=== PATIENT | female | born 1950 | race Hispanic/Latino ===

== ENCOUNTER → 2017-08-26 | Outpatient (CLI) | payer OTHER, MEDICARE | END | disposition home or self-care (01) | LOC: SHCH 10:13 | PROVIDERS: ATTEND Internal Medicine Cardiovascular Disease | DX: I73.9 Peripheral vascular disease, unspecified (principal); I87.2 Venous insufficiency (chronic) (peripheral) | CPT/HCPCS: 93925; 93970 ==

== ENCOUNTER → 2019-05-09 | Outpatient (CLI) | payer OTHER, MEDICARE ==
--- NOTE | 2019-05-05 11:53 | NUR ---
PROCEDURE WAS R/S FOR ANOTHER DOS R/T PT DRANK COFFEE THIS AM
[~2019-05-09] VITALS: Ht 162.6 cm; Wt 86.2 kg
[~2019-05-09] MED LIST: REGADENOSON 0.4 MG/5 ML PF SYG IVP SCH
== END | disposition home or self-care (01) ==
LOC: SHCH 05-05 07:58
PROVIDERS: ATTEND Internal Medicine Cardiovascular Disease
DX: R06.09 Other forms of dyspnea (principal); R07.9 Chest pain, unspecified
CPT/HCPCS: 78452; 93017; 96374; A9500 ×2; J2785

== ENCOUNTER → 2021-10-01 | Outpatient (CLI) | payer OTHER, MEDICARE | END | disposition home or self-care (01) | LOC: SHCH 09:31 | PROVIDERS: ATTEND Internal Medicine Cardiovascular Disease | DX: I87.2 Venous insufficiency (chronic) (peripheral) (principal) | CPT/HCPCS: 93970 ==

== ENCOUNTER 2022-04-05 12:04 | Emergency (ER) | payer OTHER, MEDICARE ==
[~2022-04-05] VITALS: Ht 170.2 cm; Wt 83.9 kg
[2022-04-05 12:48] LABS: APPEARANCE,URINE TURBID (CLEAR); BILIRUBIN,URINE NEGATIVE (NEGATIVE); COLOR,URINE YELLOW (YELLOW); GLUCOSE, URINE (UA) >=1000 mg/dL (NEGATIVE); KETONES,URINE NEGATIVE (NEGATIVE); LEUKOCYTE ESTERASE ,URINE MODERATE Leu/uL (NEGATIVE); NITRATE,URINE NEGATIVE (NEGATIVE); OCCULT BLOOD,URINE LARGE (NEGATIVE); PROTEIN,URINE 100 mg/dL (NEGATIVE); UROBILINOGEN,URINE 0.2 mg/dL (0.2-1.0)
[2022-04-05 13:36] LABS: BACTERIA,URINE Few /HPF (None Seen); WBC,URINE >100 /HPF (0-1)
[2022-04-05 13:37] LABS: SQUAMOUS EPITHELIAL CELL,UR Rare /HPF (0-2); YEAST,URINE BUDDING Moderate /HPF (None Seen)
[2022-04-05 13:57] VITALS: BP 132/76
== END 2022-04-05 13:58 | disposition home or self-care (01) ==
LOC: EDH 12:04
DX: N39.0 Urinary tract infection, site not specified (principal); I10 Essential (primary) hypertension; E78.00 Pure hypercholesterolemia, unspecified; E11.9 Type 2 diabetes mellitus without complications; Z87.440 Personal history of urinary (tract) infections
CPT/HCPCS: 81001; 87088

== ENCOUNTER 2022-04-14 10:27 | Emergency (ER) | payer OTHER, MEDICARE ==
[~2022-04-14] VITALS: Ht 139.7 cm; Wt 83.9 kg
[2022-04-14 10:38] VITALS: BP 140/110
[2022-04-14 11:05] LABS: BASOPHILS % (AUTO) 0.9 % (0.0-5.0); EOSINOPHILS % (AUTO) 1.9 % (0.0-8.0); HEMATOCRIT 43.5 % (36-48); LYMPHOCYTES % (AUTO) 23.4 % (21.0-51.0); MEAN CORPUSCULAR HEMOGLOBIN 29.2 pg (27.0-33.0); MEAN CORPUSCULAR HGB CONC 33.3 g/dL (32.0-36.0); MEAN CORPUSCULAR VOLUME 87.5 fL (79-99); MONOCYTES % (AUTO) 10.5 % (3.0-13.0); NEUTROPHILS % (AUTO) 62.9 % (40.0-77.0); PLATELET COUNT (AUTO) 269 K/uL (130-400); RED BLOOD CELL COUNT(AUTO) 4.97 MIL/uL (4.00-5.50); RED CELL DISTRIBUTION WIDTH 13.2 % (11.0-15.5)
[2022-04-14 11:15] LABS: CREATININE 0.8 mg/dL (0.5-1.5); POTASSIUM 3.9 mmol/L (3.5-5.1)
[2022-04-14 11:22] LABS: ALBUMIN 3.5 g/dL (3.5-5.0); TOTAL PROTEIN, SERUM 7.5 g/dL (6.0-8.3)
[2022-04-14 13:13] LABS: APPEARANCE,URINE TURBID (CLEAR); BILIRUBIN,URINE NEGATIVE (NEGATIVE); COLOR,URINE ORANGE (YELLOW); GLUCOSE, URINE (UA) >=1000 mg/dL (NEGATIVE); KETONES,URINE 5 mg/dL (NEGATIVE); LEUKOCYTE ESTERASE ,URINE MODERATE Leu/uL (NEGATIVE); NITRATE,URINE POSITIVE (NEGATIVE); OCCULT BLOOD,URINE LARGE (NEGATIVE); PROTEIN,URINE >=300 mg/dL (NEGATIVE)
[2022-04-14 13:23] LABS: BACTERIA,URINE Few /HPF (None Seen); RBC,URINE 0-1 /HPF (0-1); SQUAMOUS EPITHELIAL CELL,UR Rare /HPF (0-2); WBC,URINE TNTC /HPF (0-1); YEAST,URINE BUDDING Many /HPF (None Seen)
[2022-04-14] MEDS ORDERED: ACETAMINOPHEN 500 MG TABLET PO ONE (13:30)
[2022-04-14] MEDS ORDERED: CEFTRIAXONE 1G VIAL IM ONE (13:30)
[2022-04-14] MEDS ORDERED: CEFP100T9 PO (13:33)
== END 2022-04-14 13:48 | disposition home or self-care (01) ==
LOC: EDH 10:27
DX: N39.0 Urinary tract infection, site not specified (principal); E11.9 Type 2 diabetes mellitus without complications; E78.00 Pure hypercholesterolemia, unspecified; I10 Essential (primary) hypertension
CPT/HCPCS: 99283; 80053; 85025; 87088; 81001; 36415; 96372; J0696

== ENCOUNTER 2022-05-28 22:16 | Inpatient (IN) | payer OTHER, MEDICARE ==
[~2022-05-28] VITALS: Ht 170.2 cm; Wt 79.4 kg
[~2022-05-28 22:16] MED LIST changes: +CEFP100T9 PO; -REGADENOSON 0.4 MG/5 ML PF SYG IVP SCH
[2022-05-28] MEDS ORDERED: MORPHINE 2 MG SYG IVP ONE (23:00)
[2022-05-28] MEDS ORDERED: ONDANSETRON 4MG INJ IVP ONE (23:00)
[2022-05-28] MEDS ORDERED: MORPHINE 2 MG SYG ONE (23:04)
[2022-05-28] MEDS ORDERED: ONDANSETRON 4MG INJ ONE (23:04)
[2022-05-28 23:17] LABS: BASOPHILS % (AUTO) 0.7 % (0.0-5.0); EOSINOPHILS % (AUTO) 1.9 % (0.0-8.0); HEMATOCRIT 31.9 % (36-48); LYMPHOCYTES % (AUTO) 16.9 % (21.0-51.0); MEAN CORPUSCULAR HGB CONC 32.6 g/dL (32.0-36.0); MEAN CORPUSCULAR VOLUME 85.8 fL (79-99); MONOCYTES % (AUTO) 9.2 % (3.0-13.0); NEUTROPHILS % (AUTO) 70.2 % (40.0-77.0); PLATELET COUNT (AUTO) 407 K/uL (130-400); RED BLOOD CELL COUNT(AUTO) 3.72 MIL/uL (4.00-5.50)
[2022-05-28 23:27] LABS: PROTHROMBIN TIME 10.9 SEC (9.6-11.6)
[2022-05-28 23:33] LABS: ALBUMIN 2.5 g/dL (3.5-5.0); CREATININE 1.3 mg/dL (0.5-1.5); POTASSIUM 4.5 mmol/L (3.5-5.1); TOTAL PROTEIN, SERUM 7.2 g/dL (6.0-8.3)
[2022-05-29] VITALS (50 sets, daily range): BP systolic 87–128; BP diastolic 36–83
[2022-05-29] MEDS ORDERED: TRANEXAMIC ACID 1000MG/10ML IV ONE
[2022-05-29] MEDS ORDERED: TRANEXAMIC ACID 1000MG/10ML ONE (00:04)
[2022-05-29 00:09] LABS: HEMATOCRIT 32.2 % (36-48)
[2022-05-29] MEDS ORDERED: LACTATED RINGERS 1000ML IV SCH (02:00)
[2022-05-29] MEDS ORDERED: ALBUTEROL 0.083% 2.5 MG/3 ML INH IH PRN (02:30)
[2022-05-29] MEDS ORDERED: LACTATED RINGERS 1000ML 1,000 ML IV SCH ×2 (02:30)
[2022-05-29 02:33] LABS: HEMATOCRIT 25.9 % (36-48)
[2022-05-29] MEDS ORDERED: NOREPINEPHRIN 4MG/NS 250ML 250 ML IV ONE (05:17)
[2022-05-29] MEDS: NOREPINEPHRIN 4MG/NS 250ML 250 ML IV PRN ×2 (05:57→22:14)
[2022-05-29 06:46] LABS: APPEARANCE,URINE TURBID (CLEAR); BILIRUBIN,URINE NEGATIVE (NEGATIVE); COLOR,URINE RED (YELLOW); GLUCOSE, URINE (UA) >=1000 mg/dL (NEGATIVE); KETONES,URINE NEGATIVE (NEGATIVE); LEUKOCYTE ESTERASE ,URINE 250 Leu/uL (NEGATIVE); NITRATE,URINE NEGATIVE (NEGATIVE); OCCULT BLOOD,URINE LARGE (NEGATIVE); PH,URINE 6.5 (5.0-8.0); PROTEIN,URINE 300 mg/dL (NEGATIVE); UROBILINOGEN,URINE 0.2 mg/dL (0.2-1.0)
[2022-05-29 06:49] LABS: BACTERIA,URINE RARE /HPF (None Seen); RBC,URINE TNTC /HPF (0-1); WBC,URINE TNTC /HPF (0-1)
[2022-05-29] MEDS ORDERED: ACETAMINOPHEN WITH CODEINE 1 TAB TAB ONE (07:54)
[2022-05-29] MEDS: ACETAMINOPHEN WITH CODEINE 1 TAB TAB PO PRN (07:57)
[2022-05-29 09:17] LABS: HEMATOCRIT 29.1 % (36-48)
[2022-05-29] MEDS ORDERED: ASPI-1197 PO (09:52)
[2022-05-29] MEDS ORDERED: SIMV-46 PO (09:52)
[2022-05-29] MEDS ORDERED: CHOL100020 PO (09:52)
[2022-05-29] MEDS ORDERED: LOSA50TA64 PO (09:52)
[2022-05-29] MEDS ORDERED: GLIM4TAB36 PO (09:52)
[2022-05-29] MEDS ORDERED: EMPA1TAB21 PO (09:52)
[2022-05-29] MEDS ORDERED: GLIM2TAB30 PO (09:52)
[2022-05-29] MEDS ORDERED: ATEN50TA PO (09:52)
[2022-05-29 13:00] LABS: HEMATOCRIT 35.5 % (36-48); MEAN CORPUSCULAR HEMOGLOBIN 28.4 pg (27.0-33.0); MEAN CORPUSCULAR HGB CONC 31.8 g/dL (32.0-36.0); MEAN CORPUSCULAR VOLUME 89.2 fL (79-99); RED BLOOD CELL COUNT(AUTO) 3.98 MIL/uL (4.00-5.50); RED CELL DISTRIBUTION WIDTH 14.4 % (11.0-15.5); WHITE BLOOD COUNT (AUTO) 19.7 K/uL (4.8-10.8)
[2022-05-29] MEDS ORDERED: CEFTRIAXONE 2GM VIAL IVP SCH (13:30)
[2022-05-29 13:57] LABS: CREATININE 1.3 mg/dL (0.5-1.5)
[2022-05-29] MEDS: PANTOPRAZOLE 40 MG/VIAL IVP SCH (14:47)
[2022-05-29] MEDS: DOXYCYCLINE 100MG+NS 250ML IV SCH (14:48)
[2022-05-29] MEDS ORDERED: 0.9% NACL 500ML IV.SOLN 500 ML IV SCH (15:00)
[2022-05-29] MEDS ORDERED: METRONIDAZOLE 500MG/100ML BAG 100 ML IVPB SCH (16:00)
[2022-05-29] MEDS ORDERED: 0.9%NACL 50ML IV SCH (19:00)
[2022-05-29] MEDS ORDERED: IOHEXOL 350 MG/ML 100ML INFUS..BTL IV ONE (20:06)
[2022-05-29] MEDS: ACETAMINOPHEN 325 MG TAB PO PRN (22:09)
[2022-05-29] MEDS: ZOSYN 3.375GM +NS 50ML IVPB SCH (22:10)
[2022-05-29] MEDS: 0.9%NACL 1000ML 1,000 ML IV SCH (22:16)
[2022-05-30] VITALS (97 sets, daily range): BP systolic 80–160; BP diastolic 34–95
[2022-05-30] MEDS: DOXYCYCLINE 100MG+NS 250ML IV SCH ×3 (02:14→20:25)
[2022-05-30] MEDS: 0.9%NACL 1000ML 1,000 ML IV SCH ×4 (02:16→23:00)
[2022-05-30] MEDS: ZOSYN 3.375GM +NS 50ML IVPB SCH ×2 (04:11→13:45)
[2022-05-30 04:19] LABS: BASOPHILS % (AUTO) 0.3 % (0.0-5.0); EOSINOPHILS % (AUTO) 0.2 % (0.0-8.0); HEMATOCRIT 34.8 % (36-48); LYMPHOCYTES % (AUTO) 4.7 % (21.0-51.0); MEAN CORPUSCULAR HEMOGLOBIN 28.5 pg (27.0-33.0); MEAN CORPUSCULAR HGB CONC 30.2 g/dL (32.0-36.0); MEAN CORPUSCULAR VOLUME 94.6 fL (79-99); MONOCYTES % (AUTO) 6.7 % (3.0-13.0); NEUTROPHILS % (AUTO) 87.2 % (40.0-77.0); PLATELET COUNT (AUTO) 377 K/uL (130-400); RED BLOOD CELL COUNT(AUTO) 3.68 MIL/uL (4.00-5.50); RED CELL DISTRIBUTION WIDTH 14.6 % (11.0-15.5)
[2022-05-30 04:47] LABS: ALBUMIN 1.8 g/dL (3.5-5.0); CREATININE 1.2 mg/dL (0.5-1.5); MAGNESIUM 1.7 mg/dL (1.80-2.40); PHOSPHORUS 4.8 mg/dL (2.5-4.9); POTASSIUM 4.2 mmol/L (3.5-5.1); TOTAL PROTEIN, SERUM 5.9 g/dL (6.0-8.3)
[2022-05-30 05:22] LABS: BAND NEUTROPHILS % (MANUAL) 11 % (0-2); LYMPHOCYTES % (MANUAL) 5 % (22-44); MAN.DIFF COMMENT-IMPRESSION MANUAL DIFFERENTIAL; MONOCYTES % (MANUAL) 5 % (2-9); PLATELET MORPHOLOGY COMMENT ADEQUATE; SEGMENTED NEUTROPHILS % 79 % (40-70)
[2022-05-30] MEDS: NOREPINEPHRIN 4MG/NS 250ML 250 ML IV PRN (06:28)
[2022-05-30 08:29] LABS: CRP QUANTITATIVE 216.9 mg/L (0.00-9.0)
[2022-05-30] MEDS: ERGOCALCIFEROL (VITAMIN D2) 50,000 UNIT CAPSULE PO SCH (09:04)
[2022-05-30] MEDS: ACETAMINOPHEN WITH CODEINE 1 TAB TAB PO PRN ×2 (09:05→19:50)
[2022-05-30] MEDS: PANTOPRAZOLE 40 MG/VIAL IVP SCH (09:05)
[2022-05-30] MEDS ORDERED: DEXTROSE 50%-WATER 50 ML DISP.SYRIN IV PRN (12:30)
[2022-05-30] MEDS ORDERED: GLUCAGON 1MG KIT 1 MG ML IM PRN (12:30)
[2022-05-30] MEDS: MORPHINE 2 MG SYG IVP PRN ×2 (12:47→16:55)
[2022-05-30] MEDS: INSULIN HUMULIN R 100 UNIT/ML 3ML SQ SCH ×2 (17:02→20:25)
[2022-05-30] MEDS ORDERED: MEROPENEM 1 GM VIAL IVP SCH (20:30)
[2022-05-30] MEDS: MEROPENEM 2 GM in 0.9%NACL 100ML 100 ML IVPB SCH (21:17)
[2022-05-31] VITALS (70 sets, daily range): BP systolic 80–164; BP diastolic 42–89
[2022-05-31] MEDS: MORPHINE 2 MG SYG IVP PRN ×2 (01:08→07:53)
[2022-05-31] MEDS: NOREPINEPHRIN 4MG/NS 250ML 250 ML IV PRN (02:51)
[2022-05-31 03:14] LABS: BASOPHILS % (AUTO) 0.2 % (0.0-5.0); EOSINOPHILS % (AUTO) 0.3 % (0.0-8.0); HEMATOCRIT 29.4 % (36-48); LYMPHOCYTES % (AUTO) 2.7 % (21.0-51.0); MEAN CORPUSCULAR HEMOGLOBIN 28.7 pg (27.0-33.0); MEAN CORPUSCULAR VOLUME 89.9 fL (79-99); MONOCYTES % (AUTO) 3.3 % (3.0-13.0); NEUTROPHILS % (AUTO) 91.6 % (40.0-77.0); PLATELET COUNT (AUTO) 314 K/uL (130-400); RED BLOOD CELL COUNT(AUTO) 3.27 MIL/uL (4.00-5.50); RED CELL DISTRIBUTION WIDTH 14.6 % (11.0-15.5); WHITE BLOOD COUNT (AUTO) 25.8 K/uL (4.8-10.8)
[2022-05-31 03:29] LABS: ALBUMIN 1.5 g/dL (3.5-5.0); CREATININE 1.5 mg/dL (0.5-1.5); MAGNESIUM 1.3 mg/dL (1.80-2.40); POTASSIUM 3.1 mmol/L (3.5-5.1); TOTAL PROTEIN, SERUM 5.5 g/dL (6.0-8.3)
[2022-05-31] MEDS: KCL 20 MEQ ERTAB PO PRN ×2 (05:29→09:29)
[2022-05-31] MEDS ORDERED: LIDOCAINE HCL-MPF 1% 2ML VIAL IV PRN (05:30)
[2022-05-31] MEDS ORDERED: POTASSIUM CHLORIDE 20MEQ/100ML 100 ML IV PRN (05:30)
[2022-05-31] MEDS ORDERED: POTASSIUM CHLORIDE 10% ELIXIR 20 MEQ/15 ML UDCUP PO PRN (05:30)
[2022-05-31] MEDS: 0.9%NACL 1000ML 1,000 ML IV SCH ×3 (07:00→22:58)
[2022-05-31] MEDS: INSULIN HUMULIN R 100 UNIT/ML 3ML SQ SCH ×4 (07:30→20:25)
[2022-05-31] MEDS: PANTOPRAZOLE 40 MG/VIAL IVP SCH (07:53)
[2022-05-31] MEDS: MEROPENEM 2 GM in 0.9%NACL 100ML 100 ML IVPB SCH (07:53)
[2022-05-31] MEDS: DOXYCYCLINE 100MG+NS 250ML IV SCH ×2 (07:53→20:25)
[2022-05-31] MEDS: MIDODRINE HCL 5 MG TABLET PO SCH ×3 (09:28→20:25)
[2022-05-31] MEDS ORDERED: PHENTOLAMINE MESYLATE 5 MG VIAL ICAV SCH (11:00)
[2022-05-31] MEDS ORDERED: MEROPENEM 1 GM VIAL IVPB SCH (12:30)
[2022-05-31 13:10] LABS: MAGNESIUM 1.7 mg/dL (1.80-2.40); POTASSIUM 3.9 mmol/L (3.5-5.1)
[2022-05-31] MEDS: MAGNESIUM 2GM PREMIX 50ML 50 ML IV SCH (13:54)
[2022-05-31] MEDS: MEROPENEM 1 GM VIAL IVPB SCH (20:24)
[2022-06-01 00:27] VITALS: BP 119/66
[2022-06-01] MEDS: ACETAMINOPHEN WITH CODEINE 1 TAB TAB PO PRN (01:52)
[2022-06-01 04:22] LABS: BASOPHILS % (AUTO) 0.5 % (0.0-5.0); EOSINOPHILS % (AUTO) 3.6 % (0.0-8.0); HEMATOCRIT 27.8 % (36-48); LYMPHOCYTES % (AUTO) 6.4 % (21.0-51.0); MEAN CORPUSCULAR HEMOGLOBIN 28.7 pg (27.0-33.0); MEAN CORPUSCULAR HGB CONC 33.1 g/dL (32.0-36.0); MEAN CORPUSCULAR VOLUME 86.6 fL (79-99); MONOCYTES % (AUTO) 6.5 % (3.0-13.0); NEUTROPHILS % (AUTO) 82.2 % (40.0-77.0); PLATELET COUNT (AUTO) 287 K/uL (130-400); RED BLOOD CELL COUNT(AUTO) 3.21 MIL/uL (4.00-5.50); RED CELL DISTRIBUTION WIDTH 14.6 % (11.0-15.5); WHITE BLOOD COUNT (AUTO) 14.1 K/uL (4.8-10.8)
[2022-06-01] MEDS: ACETAMINOPHEN 325 MG TAB PO PRN ×3 (04:29→23:25)
[2022-06-01 04:42] VITALS: BP 110/64
[2022-06-01 04:43] LABS: ALBUMIN 1.4 g/dL (3.5-5.0); CREATININE 1.3 mg/dL (0.5-1.5); MAGNESIUM 2.2 mg/dL (1.80-2.40); PHOSPHORUS 2.3 mg/dL (2.5-4.9); POTASSIUM 3.8 mmol/L (3.5-5.1)
[2022-06-01] MEDS: KCL 20 MEQ ERTAB PO PRN ×2 (04:48→09:06)
[2022-06-01] MEDS: 0.9%NACL 1000ML 1,000 ML IV SCH ×3 (07:00→23:00)
[2022-06-01] MEDS: INSULIN HUMULIN R 100 UNIT/ML 3ML SQ SCH ×4 (07:30→21:00)
[2022-06-01 07:49] VITALS: BP 110/62
[2022-06-01] MEDS: PANTOPRAZOLE 40 MG/VIAL IVP SCH (09:05)
[2022-06-01] MEDS: MIDODRINE HCL 5 MG TABLET PO SCH ×3 (09:06→22:01)
[2022-06-01] MEDS: DOXYCYCLINE 100MG+NS 250ML IV SCH ×2 (09:06→22:00)
[2022-06-01] MEDS: MEROPENEM 1 GM VIAL IVPB SCH ×2 (09:06→22:03)
[2022-06-01 12:05] VITALS: BP 120/61
[2022-06-01] MEDS: MORPHINE 2 MG SYG IVP PRN (15:04)
[2022-06-01 16:30] VITALS: BP 114/51
[2022-06-01] MEDS ORDERED: FUROSEMIDE 20MG VIAL IV ONE (18:30)
[2022-06-01] MEDS: IPRATROPIUM/ALBUTEROL SULFATE 3 ML SOLUTION IH PRN ×2 (18:48→23:42)
[2022-06-01 19:21] VITALS: BP 106/64
[2022-06-01] MEDS ORDERED: IBUPROFEN 600 MG TABLET PO PRN (23:30)
[2022-06-02 00:21] VITALS: BP 92/51
[2022-06-02 03:21] VITALS: BP 105/59
[2022-06-02 04:03] LABS: BASOPHILS % (AUTO) 0.3 % (0.0-5.0); EOSINOPHILS % (AUTO) 0.9 % (0.0-8.0); HEMATOCRIT 27.5 % (36-48); LYMPHOCYTES % (AUTO) 5.5 % (21.0-51.0); MEAN CORPUSCULAR HEMOGLOBIN 28.9 pg (27.0-33.0); MEAN CORPUSCULAR HGB CONC 33.5 g/dL (32.0-36.0); MEAN CORPUSCULAR VOLUME 86.5 fL (79-99); MONOCYTES % (AUTO) 7.8 % (3.0-13.0); NEUTROPHILS % (AUTO) 84.5 % (40.0-77.0); PLATELET COUNT (AUTO) 296 K/uL (130-400); RED BLOOD CELL COUNT(AUTO) 3.18 MIL/uL (4.00-5.50); RED CELL DISTRIBUTION WIDTH 14.6 % (11.0-15.5); WHITE BLOOD COUNT (AUTO) 15.7 K/uL (4.8-10.8)
[2022-06-02 04:05] LABS: ALBUMIN 1.3 g/dL (3.5-5.0); CREATININE 1.6 mg/dL (0.5-1.5); MAGNESIUM 1.8 mg/dL (1.80-2.40); PHOSPHORUS 3.4 mg/dL (2.5-4.9); POTASSIUM 3.9 mmol/L (3.5-5.1); TOTAL PROTEIN, SERUM 4.8 g/dL (6.0-8.3)
[2022-06-02] MEDS: IPRATROPIUM/ALBUTEROL SULFATE 3 ML SOLUTION IH PRN ×3 (06:25→19:23)
[2022-06-02] MEDS: INSULIN HUMULIN R 100 UNIT/ML 3ML SQ SCH ×4 (07:30→21:00)
[2022-06-02 08:00] VITALS: BP 99/61
[2022-06-02] MEDS: PANTOPRAZOLE 40 MG/VIAL IVP SCH (09:15)
[2022-06-02] MEDS: DOXYCYCLINE 100MG+NS 250ML IV SCH ×2 (09:15→21:11)
[2022-06-02] MEDS: MIDODRINE HCL 5 MG TABLET PO SCH ×3 (09:15→21:12)
[2022-06-02] MEDS: MEROPENEM 1 GM VIAL IVPB SCH ×2 (09:15→21:12)
[2022-06-02] MEDS: MAGNESIUM 2GM PREMIX 50ML 50 ML IV SCH (09:16)
[2022-06-02 10:46] VITALS: BP 100/53
[2022-06-02 15:49] VITALS: BP 121/67
[2022-06-02] MEDS: 0.9%NACL 1000ML 1,000 ML IV SCH (17:26)
[2022-06-02 20:00] VITALS: BP 122/68
[2022-06-03] VITALS (26 sets, daily range): BP systolic 103–143; BP diastolic 47–79
[2022-06-03 04:20] LABS: BASOPHILS % (AUTO) 0.2 % (0.0-5.0); EOSINOPHILS % (AUTO) 1.9 % (0.0-8.0); HEMATOCRIT 29.9 % (36-48); LYMPHOCYTES % (AUTO) 5.7 % (21.0-51.0); MEAN CORPUSCULAR HEMOGLOBIN 28.3 pg (27.0-33.0); MEAN CORPUSCULAR HGB CONC 32.8 g/dL (32.0-36.0); MEAN CORPUSCULAR VOLUME 86.4 fL (79-99); MONOCYTES % (AUTO) 7.8 % (3.0-13.0); NEUTROPHILS % (AUTO) 83.5 % (40.0-77.0); PLATELET COUNT (AUTO) 288 K/uL (130-400); RED BLOOD CELL COUNT(AUTO) 3.46 MIL/uL (4.00-5.50); RED CELL DISTRIBUTION WIDTH 14.5 % (11.0-15.5); WHITE BLOOD COUNT (AUTO) 12.7 K/uL (4.8-10.8)
[2022-06-03 04:26] LABS: CREATININE 1.1 mg/dL (0.5-1.5); POTASSIUM 3.8 mmol/L (3.5-5.1)
[2022-06-03] MEDS: KCL 20 MEQ ERTAB PO PRN (05:43)
[2022-06-03] MEDS: ACETAMINOPHEN WITH CODEINE 1 TAB TAB PO PRN (05:43)
[2022-06-03] MEDS: INSULIN HUMULIN R 100 UNIT/ML 3ML SQ SCH ×4 (05:48→21:33)
[2022-06-03] MEDS: IPRATROPIUM/ALBUTEROL SULFATE 3 ML SOLUTION IH PRN ×2 (07:05→16:02)
[2022-06-03] MEDS: DOXYCYCLINE 100MG+NS 250ML IV SCH ×2 (09:33→21:00)
[2022-06-03] MEDS: MIDODRINE HCL 5 MG TABLET PO SCH ×3 (09:33→21:24)
[2022-06-03] MEDS: MEROPENEM 1 GM VIAL IVPB SCH ×2 (09:33→21:23)
[2022-06-03] MEDS: PANTOPRAZOLE 40 MG/VIAL IVP SCH (09:33)
[2022-06-03] MEDS ORDERED: LIDOCAINE PF 100MG/5ML (2%) SYRINGE 5ML ONE (11:01)
[2022-06-03] MEDS ORDERED: SUCCINYLCHOLINE 200MG/10ML SYR ONE (11:01)
[2022-06-03] MEDS ORDERED: DEXAMETHASONE SOD PHOSPHATE 10MG/ML 1ML VIAL ONE (11:01)
[2022-06-03] MEDS ORDERED: GLYCOPYRROLATE 1 MG/5 ML SYRINGE ONE (11:02)
[2022-06-03] MEDS ORDERED: ROCURONIUM 10MG/1ML SYR 10 MG/ML ML ONE (11:02)
[2022-06-03] MEDS ORDERED: NEOSTIGMINE 5MG/5ML SYR IV ONE (11:02)
[2022-06-03] MEDS ORDERED: PROPOFOL 10 MG/ML 20ML VIAL IV ONE (11:02)
[2022-06-03] MEDS ORDERED: MIDAZOLAM HCL 1 MG/ML 2ML VIAL ONE (11:02)
[2022-06-03] MEDS ORDERED: ONDANSETRON 4MG INJ ONE (11:02)
[2022-06-03] MEDS ORDERED: FENTANYL CITRATE PF 50 MCG/1 ML 2ML VIAL ONE (11:03)
[2022-06-03] MEDS ORDERED: EPHEDRINE SULFATE 50 MG/ML AMPULE ONE (12:14)
[2022-06-03] MEDS: 0.9%NACL 1000ML 1,000 ML IV SCH (12:28)
[2022-06-04 03:42] LABS: HEMATOCRIT 30.9 % (36-48); MEAN CORPUSCULAR HEMOGLOBIN 27.9 pg (27.0-33.0); MEAN CORPUSCULAR HGB CONC 31.7 g/dL (32.0-36.0); RED BLOOD CELL COUNT(AUTO) 3.51 MIL/uL (4.00-5.50); RED CELL DISTRIBUTION WIDTH 14.7 % (11.0-15.5); WHITE BLOOD COUNT (AUTO) 14.2 K/uL (4.8-10.8)
[2022-06-04 04:01] LABS: CREATININE 1.1 mg/dL (0.5-1.5); POTASSIUM 4.2 mmol/L (3.5-5.1)
[2022-06-04 04:59] VITALS: BP 124/61
[2022-06-04] MEDS: INSULIN HUMULIN R 100 UNIT/ML 3ML SQ SCH ×4 (06:20→20:59)
[2022-06-04] MEDS: DOXYCYCLINE 100MG+NS 250ML IV SCH ×2 (08:29→22:01)
[2022-06-04] MEDS: PANTOPRAZOLE 40 MG/VIAL IVP SCH (08:29)
[2022-06-04] MEDS: MIDODRINE HCL 5 MG TABLET PO SCH ×3 (08:29→21:23)
[2022-06-04] MEDS: MEROPENEM 1 GM VIAL IVPB SCH ×2 (08:47→20:52)
[2022-06-04 08:59] VITALS: BP 109/66
[2022-06-04] MEDS: 0.9%NACL 1000ML 1,000 ML IV SCH (09:04)
[2022-06-04 11:49] VITALS: BP 129/75
[2022-06-04 17:11] VITALS: BP 133/80
[2022-06-04 19:06] VITALS: BP 143/77
[2022-06-04 22:44] VITALS: BP 124/59
[2022-06-05 02:34] VITALS: BP 125/57
[2022-06-05] MEDS: 0.9%NACL 1000ML 1,000 ML IV SCH ×2 (05:54→18:17)
[2022-06-05 06:14] LABS: HEMATOCRIT 30.8 % (36-48); MEAN CORPUSCULAR HEMOGLOBIN 28.5 pg (27.0-33.0); MEAN CORPUSCULAR HGB CONC 32.8 g/dL (32.0-36.0); MEAN CORPUSCULAR VOLUME 86.8 fL (79-99); RED BLOOD CELL COUNT(AUTO) 3.55 MIL/uL (4.00-5.50); RED CELL DISTRIBUTION WIDTH 14.6 % (11.0-15.5)
[2022-06-05 06:35] LABS: POTASSIUM 3.9 mmol/L (3.5-5.1)
[2022-06-05] MEDS: INSULIN HUMULIN R 100 UNIT/ML 3ML SQ SCH ×4 (07:30→20:38)
[2022-06-05 07:31] VITALS: BP 140/67
[2022-06-05] MEDS: PANTOPRAZOLE 40 MG/VIAL IVP SCH (08:57)
[2022-06-05] MEDS: DOXYCYCLINE 100MG+NS 250ML IV SCH ×2 (08:57→21:41)
[2022-06-05] MEDS: MIDODRINE HCL 5 MG TABLET PO SCH ×3 (08:58→20:37)
[2022-06-05] MEDS: MEROPENEM 1 GM VIAL IVPB SCH ×2 (09:00→20:37)
[2022-06-05 11:10] VITALS: BP 122/65
[2022-06-05 16:29] VITALS: BP 129/59
[2022-06-05 19:17] VITALS: BP 127/65
[2022-06-05 23:00] VITALS: BP 135/78
[2022-06-06 02:49] VITALS: BP 126/68
[2022-06-06] MEDS: ACETAMINOPHEN WITH CODEINE 1 TAB TAB PO PRN (03:51)
[2022-06-06] MEDS: INSULIN HUMULIN R 100 UNIT/ML 3ML SQ SCH ×4 (06:16→21:00)
[2022-06-06 07:13] VITALS: BP 118/60
[2022-06-06] MEDS: ERGOCALCIFEROL (VITAMIN D2) 50,000 UNIT CAPSULE PO SCH (08:15)
[2022-06-06] MEDS: MIDODRINE HCL 5 MG TABLET PO SCH ×3 (08:16→21:15)
[2022-06-06] MEDS: MEROPENEM 1 GM VIAL IVPB SCH ×2 (08:17→21:11)
[2022-06-06] MEDS: DOXYCYCLINE 100MG+NS 250ML IV SCH ×2 (08:19→22:26)
[2022-06-06] MEDS: PANTOPRAZOLE 40 MG/VIAL IVP SCH (08:21)
[2022-06-06 11:20] VITALS: BP 137/70
[2022-06-06 15:27] VITALS: BP 110/62
[2022-06-06 20:00] VITALS: BP 134/86
[2022-06-06] MEDS: 0.9%NACL 1000ML 1,000 ML IV SCH (21:54)
[2022-06-07] VITALS (7 sets, daily range): BP systolic 115–146; BP diastolic 65–83
[2022-06-07] MEDS: ACETAMINOPHEN WITH CODEINE 1 TAB TAB PO PRN ×3 (02:32→22:37)
[2022-06-07] MEDS: INSULIN HUMULIN R 100 UNIT/ML 3ML SQ SCH ×4 (06:46→20:41)
[2022-06-07] MEDS: DOXYCYCLINE 100MG+NS 250ML IV SCH ×2 (08:43→20:34)
[2022-06-07] MEDS: MEROPENEM 1 GM VIAL IVPB SCH ×2 (08:43→22:27)
[2022-06-07] MEDS: PANTOPRAZOLE 40 MG/VIAL IVP SCH (08:43)
[2022-06-07] MEDS: MIDODRINE HCL 5 MG TABLET PO SCH ×3 (08:44→20:34)
[2022-06-07] MEDS: BISACODYL 10 MG SUPP.RECT RC PRN (18:32)
[2022-06-07] MEDS: 0.9%NACL 1000ML 1,000 ML IV SCH (20:40)
[2022-06-08 03:53] VITALS: BP 136/80
[2022-06-08 05:09] LABS: HEMATOCRIT 34.1 % (36-48); MEAN CORPUSCULAR HEMOGLOBIN 28.1 pg (27.0-33.0); MEAN CORPUSCULAR HGB CONC 31.7 g/dL (32.0-36.0); MEAN CORPUSCULAR VOLUME 88.6 fL (79-99); RED BLOOD CELL COUNT(AUTO) 3.85 MIL/uL (4.00-5.50); RED CELL DISTRIBUTION WIDTH 14.5 % (11.0-15.5); WHITE BLOOD COUNT (AUTO) 14.7 K/uL (4.8-10.8)
[2022-06-08 05:36] LABS: CREATININE 0.8 mg/dL (0.5-1.5); MAGNESIUM 1.4 mg/dL (1.80-2.40); POTASSIUM 3.9 mmol/L (3.5-5.1)
[2022-06-08] MEDS: INSULIN HUMULIN R 100 UNIT/ML 3ML SQ SCH ×4 (06:55→21:00)
[2022-06-08 07:25] VITALS: BP 120/69
[2022-06-08] MEDS: MIDODRINE HCL 5 MG TABLET PO SCH ×3 (09:00→21:00)
[2022-06-08] MEDS: DOXYCYCLINE 100MG+NS 250ML IV SCH ×2 (09:39→22:55)
[2022-06-08] MEDS: PANTOPRAZOLE 40 MG/VIAL IVP SCH (09:39)
[2022-06-08] MEDS: MEROPENEM 1 GM VIAL IVPB SCH ×2 (09:40→22:55)
[2022-06-08 11:10] VITALS: BP 116/67
[2022-06-08] MEDS ORDERED: MAGNESIUM 4GM PREMIX 100ML 100 ML IV PRN (11:30)
[2022-06-08] MEDS: 0.9%NACL 1000ML 1,000 ML IV SCH (13:54)
[2022-06-08 15:19] VITALS: BP 119/62
[2022-06-08] MEDS: MAGNESIUM 2GM PREMIX 50ML 50 ML IV SCH (17:19)
[2022-06-08 20:00] VITALS: BP 130/70
[2022-06-09] VITALS: BP 125/73
[2022-06-09 05:05] LABS: HEMATOCRIT 30.7 % (36-48); MEAN CORPUSCULAR HEMOGLOBIN 28.3 pg (27.0-33.0); MEAN CORPUSCULAR HGB CONC 31.9 g/dL (32.0-36.0); MEAN CORPUSCULAR VOLUME 88.7 fL (79-99); RED BLOOD CELL COUNT(AUTO) 3.46 MIL/uL (4.00-5.50); RED CELL DISTRIBUTION WIDTH 14.5 % (11.0-15.5); WHITE BLOOD COUNT (AUTO) 8.8 K/uL (4.8-10.8)
[2022-06-09 05:06] VITALS: BP 111/59
[2022-06-09 05:14] LABS: INR 1.09 (0.85-1.15); PROTHROMBIN TIME 11.8 SEC (9.6-11.6)
[2022-06-09 05:15] LABS: PARTIAL THROMBOPLASTIN TIME 27.6 SEC (26.3-35.5)
[2022-06-09 05:18] LABS: CREATININE 0.8 mg/dL (0.5-1.5); MAGNESIUM 1.4 mg/dL (1.80-2.40); POTASSIUM 3.1 mmol/L (3.5-5.1)
[2022-06-09] MEDS: INSULIN HUMULIN R 100 UNIT/ML 3ML SQ SCH ×4 (05:35→21:00)
[2022-06-09] MEDS: MAGNESIUM 2GM PREMIX 50ML 50 ML IV SCH (05:42)
[2022-06-09 07:40] VITALS: BP 114/66
[2022-06-09] MEDS: MIDODRINE HCL 5 MG TABLET PO SCH ×4 (09:00→21:19)
[2022-06-09] MEDS: DOXYCYCLINE 100MG+NS 250ML IV SCH ×2 (10:24→21:19)
[2022-06-09] MEDS: PANTOPRAZOLE 40 MG/VIAL IVP SCH (10:24)
[2022-06-09] MEDS: MEROPENEM 1 GM VIAL IVPB SCH ×2 (10:24→21:19)
[2022-06-09] MEDS: 0.9%NACL 1000ML 1,000 ML IV SCH (11:32)
[2022-06-09 11:40] VITALS: BP 119/66
[2022-06-09] MEDS: KCL 20 MEQ ERTAB PO PRN ×3 (15:30→21:20)
[2022-06-09 15:35] VITALS: BP 108/59
[2022-06-09 20:41] VITALS: BP 114/57
[2022-06-10] VITALS (27 sets, daily range): BP systolic 116–147; BP diastolic 50–82
[2022-06-10 04:41] LABS: BASOPHILS % (AUTO) 0.5 % (0.0-5.0); EOSINOPHILS % (AUTO) 4.1 % (0.0-8.0); HEMATOCRIT 31.8 % (36-48); LYMPHOCYTES % (AUTO) 16.1 % (21.0-51.0); MEAN CORPUSCULAR HGB CONC 32.1 g/dL (32.0-36.0); MEAN CORPUSCULAR VOLUME 87.4 fL (79-99); MONOCYTES % (AUTO) 10.7 % (3.0-13.0); NEUTROPHILS % (AUTO) 67.7 % (40.0-77.0); PLATELET COUNT (AUTO) 291 K/uL (130-400); RED BLOOD CELL COUNT(AUTO) 3.64 MIL/uL (4.00-5.50); RED CELL DISTRIBUTION WIDTH 14.5 % (11.0-15.5); WHITE BLOOD COUNT (AUTO) 7.8 K/uL (4.8-10.8)
[2022-06-10 04:51] LABS: INR 1.07 (0.85-1.15); PROTHROMBIN TIME 11.6 SEC (9.6-11.6)
[2022-06-10 04:52] LABS: PARTIAL THROMBOPLASTIN TIME 27.8 SEC (26.3-35.5)
[2022-06-10 05:01] LABS: ALBUMIN 1.6 g/dL (3.5-5.0); CREATININE 0.7 mg/dL (0.5-1.5); MAGNESIUM 1.6 mg/dL (1.80-2.40); POTASSIUM 3.7 mmol/L (3.5-5.1); TOTAL PROTEIN, SERUM 5.6 g/dL (6.0-8.3)
[2022-06-10] MEDS: INSULIN HUMULIN R 100 UNIT/ML 3ML SQ SCH ×4 (05:05→20:42)
[2022-06-10] MEDS: MAGNESIUM 2GM PREMIX 50ML 50 ML IV SCH (05:10)
[2022-06-10] MEDS: PANTOPRAZOLE 40 MG/VIAL IVP SCH (08:15)
[2022-06-10] MEDS: MEROPENEM 1 GM VIAL IVPB SCH ×2 (08:15→20:47)
[2022-06-10] MEDS: DOXYCYCLINE 100MG+NS 250ML IV SCH (08:16)
[2022-06-10] MEDS: MIDODRINE HCL 5 MG TABLET PO SCH ×4 (08:16→20:48)
[2022-06-10] MEDS: FLUCONAZOLE 100 MG TAB PO SCH (08:16)
[2022-06-10] MEDS: LACTOBACILLUS RHAMNOSUS GG 1 EACH CAP.SPRINK PO SCH (09:00)
[2022-06-10] MEDS ORDERED: ONDANSETRON 4MG INJ ONE (13:48)
[2022-06-10] MEDS ORDERED: PROPOFOL 10 MG/ML 20ML VIAL IV ONE (13:48)
[2022-06-10] MEDS ORDERED: ROCURONIUM 10MG/1ML SYR 10 MG/ML ML ONE (13:48)
[2022-06-10] MEDS ORDERED: FENTANYL CITRATE PF 50 MCG/1 ML 2ML VIAL ONE (13:59)
[2022-06-10] MEDS: 0.9%NACL 1000ML 1,000 ML IV SCH (14:04)
[2022-06-10] MEDS ORDERED: AMINOCAPROIC ACID 5,000MG VIAL ONE ×3 (15:08→15:13)
[2022-06-10] MEDS ORDERED: ZOSYN 3.375GM+NS 50ML 50 ML IVPB ONE ×2 (15:18→19:55)
[2022-06-10] MEDS ORDERED: PIP/TAZ ZOSYN 3.375G 3.375 GM VIAL IVPB ONE (15:24)
[2022-06-10] MEDS ORDERED: MEPERIDINE-PF 75 MG/ML SYG IM PRN (17:30)
[2022-06-10] MEDS ORDERED: ONDANSETRON 4MG INJ IVP PRN (17:30)
[2022-06-10] MEDS ORDERED: OXYBUTYNIN 5 MG TAB.SR.24H PO SCH (17:30)
[2022-06-10] MEDS ORDERED: PHARMACY COMMUNICATION MISC SCH ×2 (17:30→20:00)
[2022-06-10] MEDS ORDERED: ACETAMINOPHEN WITH CODEINE 1 TAB TAB PO PRN (17:30)
[2022-06-10] MEDS: [UNRECOGNIZED DRUG - OTHER] IV SCH (19:30)
[2022-06-10] MEDS: AMINOCAPROIC ACID IV SCH (19:30)
[2022-06-10] MEDS: ZOSYN 3.375GM +NS 50ML IVPB SCH (20:47)
[2022-06-10] MEDS: AMINOCAPROIC ACID 500MG TAB PO SCH (20:47)
[2022-06-10] MEDS ORDERED: 0.9%NACL 50ML IV SCH (21:00)
[2022-06-11] MEDS: 0.9%NACL 1000ML 1,000 ML IV SCH ×2 (00:26→20:31)
[2022-06-11 04:22] VITALS: BP 116/61
[2022-06-11] MEDS: ZOSYN 3.375GM +NS 50ML IVPB SCH ×3 (04:26→20:30)
[2022-06-11] MEDS: [UNRECOGNIZED DRUG - OTHER] IV SCH (04:33)
[2022-06-11] MEDS: AMINOCAPROIC ACID IV SCH (04:33)
[2022-06-11 05:51] LABS: BASOPHILS % (AUTO) 0.9 % (0.0-5.0); EOSINOPHILS % (AUTO) 5.5 % (0.0-8.0); HEMATOCRIT 29.9 % (36-48); LYMPHOCYTES % (AUTO) 20.2 % (21.0-51.0); MEAN CORPUSCULAR HEMOGLOBIN 28.4 pg (27.0-33.0); MEAN CORPUSCULAR HGB CONC 32.4 g/dL (32.0-36.0); MEAN CORPUSCULAR VOLUME 87.4 fL (79-99); MONOCYTES % (AUTO) 10.6 % (3.0-13.0); NEUTROPHILS % (AUTO) 61.9 % (40.0-77.0); PLATELET COUNT (AUTO) 279 K/uL (130-400); RED BLOOD CELL COUNT(AUTO) 3.42 MIL/uL (4.00-5.50); RED CELL DISTRIBUTION WIDTH 14.7 % (11.0-15.5); WHITE BLOOD COUNT (AUTO) 6.7 K/uL (4.8-10.8)
[2022-06-11] MEDS: INSULIN HUMULIN R 100 UNIT/ML 3ML SQ SCH ×4 (06:04→20:28)
[2022-06-11 06:13] LABS: CREATININE 0.7 mg/dL (0.5-1.5); POTASSIUM 3.2 mmol/L (3.5-5.1)
[2022-06-11 08:36] VITALS: BP 124/63
[2022-06-11] MEDS: FLUCONAZOLE 100 MG TAB PO SCH (09:00)
[2022-06-11] MEDS: AMINOCAPROIC ACID 500MG TAB PO SCH ×4 (09:00→20:30)
[2022-06-11] MEDS: LACTOBACILLUS RHAMNOSUS GG 1 EACH CAP.SPRINK PO SCH (09:00)
[2022-06-11] MEDS: MIDODRINE HCL 5 MG TABLET PO SCH ×3 (09:00→20:31)
[2022-06-11] MEDS: PANTOPRAZOLE 40 MG/VIAL IVP SCH (10:46)
[2022-06-11] MEDS: MEROPENEM 1 GM VIAL IVPB SCH ×2 (10:46→20:30)
[2022-06-11 11:32] VITALS: BP 95/64
[2022-06-11] MEDS: KCL 20 MEQ ERTAB PO PRN ×3 (14:09→20:31)
[2022-06-11 16:01] VITALS: BP 136/71
[2022-06-11 20:35] VITALS: BP 137/71
[2022-06-12 00:17] VITALS: BP 147/66
[2022-06-12] MEDS: ACETAMINOPHEN 325 MG TAB PO PRN (02:40)
[2022-06-12 03:57] VITALS: BP 146/71
[2022-06-12] MEDS: ZOSYN 3.375GM +NS 50ML IVPB SCH ×3 (04:06→20:10)
[2022-06-12] MEDS: INSULIN HUMULIN R 100 UNIT/ML 3ML SQ SCH ×4 (05:59→21:00)
[2022-06-12 09:21] VITALS: BP 119/66
[2022-06-12] MEDS: MIDODRINE HCL 5 MG TABLET PO SCH ×3 (09:50→20:10)
[2022-06-12] MEDS: AMINOCAPROIC ACID 500MG TAB PO SCH ×4 (09:50→20:10)
[2022-06-12] MEDS: FLUCONAZOLE 100 MG TAB PO SCH (09:51)
[2022-06-12] MEDS: LACTOBACILLUS RHAMNOSUS GG 1 EACH CAP.SPRINK PO SCH (09:51)
[2022-06-12] MEDS: PANTOPRAZOLE 40 MG/VIAL IVP SCH (09:51)
[2022-06-12] MEDS: MEROPENEM 1 GM VIAL IVPB SCH ×2 (09:52→20:09)
[2022-06-12 12:12] VITALS: BP 116/61
[2022-06-12 17:22] VITALS: BP 130/59
[2022-06-12 20:00] VITALS: BP 140/68
[2022-06-12] MEDS: 0.9%NACL 1000ML 1,000 ML IV SCH (20:10)
[2022-06-13] VITALS: BP 146/67
[2022-06-13] MEDS: ZOSYN 3.375GM +NS 50ML IVPB SCH ×3 (03:22→21:15)
[2022-06-13] MEDS: ACETAMINOPHEN WITH CODEINE 1 TAB TAB PO PRN (03:23)
[2022-06-13 04:00] VITALS: BP 143/76
[2022-06-13] MEDS: INSULIN HUMULIN R 100 UNIT/ML 3ML SQ SCH ×4 (05:13→21:00)
[2022-06-13 05:50] LABS: HEMATOCRIT 32.3 % (36-48); MEAN CORPUSCULAR HEMOGLOBIN 28.2 pg (27.0-33.0); RED BLOOD CELL COUNT(AUTO) 3.55 MIL/uL (4.00-5.50); RED CELL DISTRIBUTION WIDTH 14.6 % (11.0-15.5); WHITE BLOOD COUNT (AUTO) 7.8 K/uL (4.8-10.8)
[2022-06-13 06:02] LABS: POTASSIUM 3.1 mmol/L (3.5-5.1)
[2022-06-13] MEDS: KCL 20 MEQ ERTAB PO PRN ×3 (06:15→11:10)
[2022-06-13 08:13] VITALS: BP 121/59
[2022-06-13] MEDS: FLUCONAZOLE 100 MG TAB PO SCH (10:59)
[2022-06-13] MEDS: MIDODRINE HCL 5 MG TABLET PO SCH ×3 (11:00→21:17)
[2022-06-13] MEDS: LACTOBACILLUS RHAMNOSUS GG 1 EACH CAP.SPRINK PO SCH (11:06)
[2022-06-13] MEDS: AMINOCAPROIC ACID 500MG TAB PO SCH ×4 (11:07→21:17)
[2022-06-13] MEDS: MEROPENEM 1 GM VIAL IVPB SCH ×2 (11:07→21:15)
[2022-06-13] MEDS: PANTOPRAZOLE 40 MG/VIAL IVP SCH (11:08)
[2022-06-13] MEDS ORDERED: ERGOCALCIFEROL (VITAMIN D2) 50,000 UNIT CAPSULE PO SCH ×2 (11:30→11:46)
[2022-06-13 12:02] VITALS: BP 110/70
[2022-06-13 17:06] VITALS: BP 110/59
[2022-06-13 20:00] VITALS: BP 114/56
[2022-06-14] VITALS: BP 142/78
[2022-06-14 04:00] VITALS: BP 107/66
[2022-06-14] MEDS: ZOSYN 3.375GM +NS 50ML IVPB SCH ×3 (04:44→20:27)
[2022-06-14 05:40] LABS: HEMATOCRIT 33.1 % (36-48); MEAN CORPUSCULAR HEMOGLOBIN 27.8 pg (27.0-33.0); MEAN CORPUSCULAR HGB CONC 31.1 g/dL (32.0-36.0); MEAN CORPUSCULAR VOLUME 89.5 fL (79-99); RED BLOOD CELL COUNT(AUTO) 3.7 MIL/uL (4.00-5.50); RED CELL DISTRIBUTION WIDTH 14.9 % (11.0-15.5); WHITE BLOOD COUNT (AUTO) 7.9 K/uL (4.8-10.8)
[2022-06-14 05:43] LABS: CREATININE 0.8 mg/dL (0.5-1.5); POTASSIUM 3.2 mmol/L (3.5-5.1)
[2022-06-14] MEDS: INSULIN HUMULIN R 100 UNIT/ML 3ML SQ SCH ×4 (06:26→20:29)
[2022-06-14 08:47] VITALS: BP 115/67
[2022-06-14] MEDS: AMINOCAPROIC ACID 500MG TAB PO SCH ×4 (10:35→20:29)
[2022-06-14] MEDS: LACTOBACILLUS RHAMNOSUS GG 1 EACH CAP.SPRINK PO SCH (10:35)
[2022-06-14] MEDS: FLUCONAZOLE 100 MG TAB PO SCH (10:35)
[2022-06-14] MEDS: MIDODRINE HCL 5 MG TABLET PO SCH ×3 (10:35→20:33)
[2022-06-14] MEDS: MEROPENEM 1 GM VIAL IVPB SCH (10:36)
[2022-06-14] MEDS: PANTOPRAZOLE 40 MG/VIAL IVP SCH (10:36)
[2022-06-14 12:11] VITALS: BP 99/69
[2022-06-14 16:56] VITALS: BP 146/77
[2022-06-14 20:00] VITALS: BP 154/82
[2022-06-14] MEDS: ACETAMINOPHEN 325 MG TAB PO PRN (23:00)
[2022-06-15] VITALS: BP 122/70
[2022-06-15 04:00] VITALS: BP 126/72
[2022-06-15] MEDS: ZOSYN 3.375GM +NS 50ML IVPB SCH ×3 (04:15→20:22)
[2022-06-15 04:16] LABS: HEMATOCRIT 32.6 % (36-48); MEAN CORPUSCULAR HEMOGLOBIN 28.1 pg (27.0-33.0); MEAN CORPUSCULAR HGB CONC 31.9 g/dL (32.0-36.0); MEAN CORPUSCULAR VOLUME 88.1 fL (79-99); RED BLOOD CELL COUNT(AUTO) 3.7 MIL/uL (4.00-5.50)
[2022-06-15 04:27] LABS: CREATININE 0.8 mg/dL (0.5-1.5); POTASSIUM 3.2 mmol/L (3.5-5.1)
[2022-06-15] MEDS: INSULIN HUMULIN R 100 UNIT/ML 3ML SQ SCH ×4 (06:41→21:00)
[2022-06-15 08:00] VITALS: BP 131/73
[2022-06-15] MEDS: MIDODRINE HCL 5 MG TABLET PO SCH ×3 (09:06→20:22)
[2022-06-15] MEDS: PANTOPRAZOLE 40 MG/VIAL IVP SCH (09:06)
[2022-06-15] MEDS: FLUCONAZOLE 100 MG TAB PO SCH (09:06)
[2022-06-15] MEDS: AMINOCAPROIC ACID 500MG TAB PO SCH ×4 (09:06→20:22)
[2022-06-15] MEDS: LACTOBACILLUS RHAMNOSUS GG 1 EACH CAP.SPRINK PO SCH (09:06)
[2022-06-15] MEDS: KCL 20 MEQ ERTAB PO PRN ×3 (09:07→13:44)
[2022-06-15 12:00] VITALS: BP 130/78
[2022-06-15] MEDS ORDERED: LACTULOSE 20 GM/30 ML UDCUP PO SCH (14:30)
[2022-06-15 16:00] VITALS: BP 145/97
[2022-06-15 20:00] VITALS: BP 144/87
[2022-06-16] VITALS: BP 124/50
[2022-06-16 04:00] VITALS: BP 129/75
[2022-06-16] MEDS: ZOSYN 3.375GM +NS 50ML IVPB SCH ×3 (05:43→20:36)
[2022-06-16] MEDS: INSULIN HUMULIN R 100 UNIT/ML 3ML SQ SCH ×4 (05:44→20:56)
[2022-06-16] MEDS: BISACODYL 10 MG SUPP.RECT RC PRN (06:37)
[2022-06-16 08:00] VITALS: BP 127/70
[2022-06-16] MEDS: AMINOCAPROIC ACID 500MG TAB PO SCH ×4 (08:53→20:36)
[2022-06-16] MEDS: PANTOPRAZOLE 40 MG/VIAL IVP SCH (08:54)
[2022-06-16] MEDS: LACTOBACILLUS RHAMNOSUS GG 1 EACH CAP.SPRINK PO SCH (08:54)
[2022-06-16] MEDS: FLUCONAZOLE 100 MG TAB PO SCH (08:54)
[2022-06-16] MEDS: MIDODRINE HCL 5 MG TABLET PO SCH ×3 (08:55→20:37)
[2022-06-16 09:17] LABS: MAGNESIUM 1.5 mg/dL (1.80-2.40); POTASSIUM 3.6 mmol/L (3.5-5.1)
[2022-06-16] MEDS: MAGNESIUM 2GM PREMIX 50ML 50 ML IV SCH (10:00)
[2022-06-16 12:00] VITALS: BP 132/62
[2022-06-16 16:00] VITALS: BP 140/77
[2022-06-16 20:00] VITALS: BP 119/74
[2022-06-16] MEDS: ACETAMINOPHEN WITH CODEINE 1 TAB TAB PO PRN (21:51)
[2022-06-17] VITALS: BP 112/65
[2022-06-17 04:00] VITALS: BP 108/55
[2022-06-17] MEDS: ZOSYN 3.375GM +NS 50ML IVPB SCH ×2 (05:06→12:35)
[2022-06-17] MEDS: INSULIN HUMULIN R 100 UNIT/ML 3ML SQ SCH ×2 (05:56→11:30)
[2022-06-17 08:12] VITALS: BP 117/59
[2022-06-17] MEDS: AMINOCAPROIC ACID 500MG TAB PO SCH ×2 (09:21→12:35)
[2022-06-17] MEDS: PANTOPRAZOLE 40 MG/VIAL IVP SCH (09:21)
[2022-06-17] MEDS: LACTOBACILLUS RHAMNOSUS GG 1 EACH CAP.SPRINK PO SCH (09:21)
[2022-06-17] MEDS: FLUCONAZOLE 100 MG TAB PO SCH (09:21)
[2022-06-17] MEDS: MIDODRINE HCL 5 MG TABLET PO SCH (09:21)
[2022-06-17] MEDS: ACETAMINOPHEN 325 MG TAB PO PRN (09:28)
[2022-06-17 11:39] VITALS: BP 108/78
== END 2022-06-17 15:40 | DRG 853 ==
LOC: EDH 22:16 → OBSVTOIN 05-29 02:01 → EDHIP 05-29 02:01 → 2CV 05-29 11:16 → 2CH 05-29 18:26 → 2DH 05-31 22:29 → WSH 06-04 16:51 → 4DH 06-06 16:34
PROVIDERS: ADMIT Internal Medicine Critical Care Medicine; ATTEND Internal Medicine Critical Care Medicine
PROC: 30233N1 Transfusion of Nonautologous Red Blood Cells into Peripheral Vein, Percutaneous Approach (ICD-10-PCS; 2022-05-29)
PROC: 0UDB8ZZ Extraction of Endometrium, Via Natural or Artificial Opening Endoscopic (ICD-10-PCS; 2022-06-03)
PROC: BT141ZZ Fluoroscopy of Kidneys, Ureters and Bladder using Low Osmolar Contrast (ICD-10-PCS; 2022-06-10)
PROC: 0T9B8ZX Drainage of Bladder, Via Natural or Artificial Opening Endoscopic, Diagnostic (ICD-10-PCS; principal; 2022-06-10 14:01)
DX: A41.9 Sepsis, unspecified organism (principal); R57.1 Hypovolemic shock; R65.21 Severe sepsis with septic shock; D62 Acute posthemorrhagic anemia; E87.1 Hypo-osmolality and hyponatremia; N13.6 Pyonephrosis; I10 Essential (primary) hypertension; Z20.822 Contact with and (suspected) exposure to COVID-19; Z66 Do not resuscitate; E11.9 Type 2 diabetes mellitus without complications; R93.89 Abnormal findings on diagnostic imaging of other specified body structures; N95.0 Postmenopausal bleeding; N84.0 Polyp of corpus uteri; N81.4 Uterovaginal prolapse, unspecified; E66.9 Obesity, unspecified; E78.00 Pure hypercholesterolemia, unspecified; N30.81 Other cystitis with hematuria; N32.89 Other specified disorders of bladder; N95.2 Postmenopausal atrophic vaginitis; Z80.0 Family history of malignant neoplasm of digestive organs; Z80.42 Family history of malignant neoplasm of prostate; Z87.19 Personal history of other diseases of the digestive system; Z68.27 Body mass index [BMI] 27.0-27.9, adult
CPT/HCPCS: 36415; 71045; 72193; 74176; 74178; 74420; 74430; 76830; 80048; 80053; 81001; 82948; 83605; 83735; 83880; 84100; 84132; 84145; 85007; 85014; 85018; 85025; 85027; 85384; 85610; 85730; 86140; 86850; 86900; 86901; 86923; 87040; 87077; 87088; 87186; 87426; 87804; 93005; 94640; 97039; A4346; A4351; A4354; A4355; C1758; C9113; G0378; J0330; J0696; J1100; J1815; J1940; J2001; J2185; J2250; J2405; J2543; J2704; J2710; J2760; J3010; J3475; J3490; J7030; J7120; P9016; Q9958; Q9967

== ENCOUNTER 2022-12-26 18:13 | Emergency (ER) | payer OTHER, MEDICARE ==
[~2022-12-26] VITALS: Ht 162.6 cm; Wt 68.0 kg
[~2022-12-26 18:13] MED LIST changes: +ASPI-1197 PO; -CEFP100T9 PO; +CHOL100020 PO; +EMPA1TAB21 PO; +GLIM2TAB30 PO; +SIMV-46 PO
[2022-12-26 18:41] LABS: APPEARANCE,URINE CLOUDY (CLEAR); BILIRUBIN,URINE NEGATIVE (NEGATIVE); COLOR,URINE YELLOW (YELLOW); GLUCOSE, URINE (UA) NEGATIVE (NEGATIVE); KETONES,URINE NEGATIVE (NEGATIVE); LEUKOCYTE ESTERASE ,URINE LARGE Leu/uL (NEGATIVE); NITRATE,URINE POSITIVE (NEGATIVE); OCCULT BLOOD,URINE MODERATE (NEGATIVE); PROTEIN,URINE 30 mg/dL (NEGATIVE); UROBILINOGEN,URINE 0.2 mg/dL (0.2-1.0)
[2022-12-26 18:46] LABS: ADD UA MICROSCOPIC YES
[2022-12-26 18:49] LABS: BACTERIA,URINE FEW /HPF (None Seen); SQUAMOUS EPITHELIAL CELL,UR RARE /HPF (0-2); UNCLASSIFIED CRYSTAL 7 /HPF (None Seen); WBC CLUMP MOD /HPF (0-1); WBC,URINE >100 /HPF (0-1); YEAST,URINE BUDDING FEW /HPF (None Seen)
[2022-12-26 19:00] LABS: BASOPHILS # (AUTO) 0.05 K/uL (0.00-0.20); BASOPHILS % (AUTO) 0.4 % (0.0-5.0); EOSINOPHILS # (AUTO) 0.08 K/uL (0.00-0.70); EOSINOPHILS % (AUTO) 0.7 % (0.0-8.0); HEMATOCRIT 35.7 % (36-48); IMMATURE GRANULOCYTE ABSOLUTE 0.04 K/uL (0-1); LYMPHOCYTES % (AUTO) 8.3 % (21.0-51.0); MEAN CORPUSCULAR HEMOGLOBIN 28.2 pg (27.0-33.0); MEAN CORPUSCULAR HGB CONC 32.2 g/dL (32.0-36.0); MEAN CORPUSCULAR VOLUME 87.5 fL (79-99); MONOCYTES # (AUTO) 0.8 K/uL (0.1-1.0); MONOCYTES % (AUTO) 7.1 % (3.0-13.0); NEUTROPHILS # (AUTO) 9.6 K/uL (1.8-7.7); NEUTROPHILS % (AUTO) 83.2 % (40.0-77.0); PLATELET COUNT (AUTO) 395 K/uL (130-400); RED BLOOD CELL COUNT(AUTO) 4.08 MIL/uL (4.00-5.50); RED CELL DISTRIBUTION WIDTH 14.3 % (11.0-15.5); WHITE BLOOD COUNT (AUTO) 11.5 K/uL (4.8-10.8)
[2022-12-26 19:41] VITALS: BP 107/56; PULSE 91; RESP 16; O2SAT 97
[2022-12-26 19:50] LABS: ALBUMIN 3.1 g/dL (3.5-5.0); BILIRUBIN,TOTAL 0.2 mg/dL (0.2-1.0); CREATININE 1.4 mg/dL (0.5-1.5); POTASSIUM 4.2 mmol/L (3.5-5.1); TOTAL PROTEIN, SERUM 7.8 g/dL (6.0-8.3)
[2022-12-26] MEDS ORDERED: CEFTRIAXONE 1G VIAL IM ONE (20:30)
[2023-01-02] MEDS ORDERED: LOSA50TA64 PO (01:45)
[2023-01-02] MEDS ORDERED: ATEN50TA PO (01:45)
[2023-01-02] MEDS ORDERED: VIBE75TA PO (01:45)
== END 2022-12-26 20:30 | disposition left against medical advice (07) ==
LOC: EDH 18:13
DX: R53.1 Weakness (principal); Z53.21 Procedure and treatment not carried out due to patient leaving prior to being seen by health care provider
CPT/HCPCS: 36415; 80053; 81001; 85025; 87077; 87088; 87186; 99281

== ENCOUNTER → 2023-01-26 | Outpatient (CLI) | payer OTHER, MEDICARE ==
[~2023-01-26] MED LIST changes: -ASPI-1197 PO; +ATEN50TA PO; -CHOL100020 PO; -EMPA1TAB21 PO; +FAMO20TA8 PO; +LOSA50TA64 PO; +VIBE75TA PO
== END | disposition home or self-care (01) ==
LOC: RAH 14:49
PROVIDERS: ATTEND Family Medicine
DX: M16.0 Bilateral primary osteoarthritis of hip (principal); M25.552 Pain in left hip; M25.551 Pain in right hip; W19.XXXA Unspecified fall, initial encounter; Y93.89 Activity, other specified; Y92.89 Other specified places as the place of occurrence of the external cause; Y99.8 Other external cause status
CPT/HCPCS: 73521

== ENCOUNTER → 2023-04-26 | Outpatient (CLI) | payer OTHER, MEDICARE | END | disposition home or self-care (01) | LOC: OIH 13:51 | PROVIDERS: ATTEND Internal Medicine Gastroenterology | DX: R63.4 Abnormal weight loss (principal) | CPT/HCPCS: 71046 ==

== ENCOUNTER 2023-10-28 19:17 | Emergency (ER) | payer OTHER, MEDICARE ==
[~2023-10-28] VITALS: Ht 160 cm; Wt 72.6 kg
[~2023-10-28 19:17] MED LIST changes: +ACET-2079 PO; -FAMO20TA8 PO; -GLIM2TAB30 PO; +GLIM4TAB36 PO; +NAPR-1023 PO
[2023-10-28] MEDS: ACETAMINOPHEN 500 MG TABLET PO ONE (19:40)
[2023-10-28 20:02] LABS: SARS-CoV-2, RNA, NAAT POSITIVE SARS CoV-2 (NEGATIVE)
[2023-10-28 20:10] LABS: BASOPHILS # (AUTO) 0.04 K/uL (0.00-0.20); BASOPHILS % (AUTO) 0.6 % (0.0-5.0); EOSINOPHILS # (AUTO) 0.06 K/uL (0.00-0.70); EOSINOPHILS % (AUTO) 0.9 % (0.0-8.0); IMMATURE GRANULOCYTE ABSOLUTE 0.02 K/uL (0-1); LYMPHOCYTES # (AUTO) 1.2 K/uL (1.0-4.8); MEAN CORPUSCULAR HEMOGLOBIN 28.5 pg (27.0-33.0); MEAN CORPUSCULAR HGB CONC 32.9 g/dL (32.0-36.0); MEAN CORPUSCULAR VOLUME 86.5 fL (79-99); MONOCYTES % (AUTO) 13.9 % (3.0-13.0); NEUTROPHILS # (AUTO) 4.6 K/uL (1.8-7.7); NEUTROPHILS % (AUTO) 67.3 % (40.0-77.0); PLATELET COUNT (AUTO) 201 K/uL (130-400); RED BLOOD CELL COUNT(AUTO) 3.93 MIL/uL (4.00-5.50); RED CELL DISTRIBUTION WIDTH 15.4 % (11.0-15.5); WHITE BLOOD COUNT (AUTO) 6.8 K/uL (4.8-10.8)
[2023-10-28 20:11] LABS: INFLUENZA TYPE A Negative For Type A (NEGATIVE); INFLUENZA TYPE B Negative For Type B (NEGATIVE)
[2023-10-28 20:19] VITALS: TEMP 100
[2023-10-28 20:24] LABS: CREATININE 1.1 mg/dL (0.5-1.0); POTASSIUM 4.4 mmol/L (3.5-5.1)
[2023-10-28 20:29] LABS: ALBUMIN 3.5 g/dL (3.5-5.0); BILIRUBIN,TOTAL 0.3 mg/dL (0.2-1.0); TOTAL PROTEIN, SERUM 7.4 g/dL (6.0-8.3)
[2023-10-28] MEDS: 0.9%NACL 1000ML 1,000 ML IV ONE (21:17)
[2023-10-28] MEDS: DEXAMETHASONE SOD PHOSPHATE 4 MG/ML 1ML VIAL IVP ONE (21:17)
[2023-10-28 22:04] LABS: APPEARANCE,URINE CLOUDY (CLEAR); BILIRUBIN,URINE NEGATIVE (NEGATIVE); COLOR,URINE COLORLESS (YELLOW); GLUCOSE, URINE (UA) NEGATIVE (NEGATIVE); KETONES,URINE NEGATIVE (NEGATIVE); LEUKOCYTE ESTERASE ,URINE 250 Leu/uL (NEGATIVE); NITRATE,URINE NEGATIVE (NEGATIVE); OCCULT BLOOD,URINE LARGE (NEGATIVE); PROTEIN,URINE 20 mg/dL (NEGATIVE); UROBILINOGEN,URINE 0.2 mg/dL (0.2-1.0)
[2023-10-28 22:05] LABS: ADD UA MICROSCOPIC YES
[2023-10-28 22:06] LABS: MUCUS,URINE RARE LPF (None Seen); RBC,URINE TNTC /HPF (0-1); SQUAMOUS EPITHELIAL CELL,UR RARE /HPF (0-2); WBC,URINE 51-100 /HPF (0-1)
[2023-10-28 22:11] VITALS: BP 130/86; PULSE 73; RESP 19; O2SAT 98
[2023-10-28] MEDS ORDERED: MOLN200C PO (22:12)
[2023-10-28] MEDS ORDERED: CEPH500B PO (22:12)
== END 2023-10-28 22:43 | disposition home or self-care (01) ==
LOC: EDH 19:17
DX: U07.1 COVID-19 (principal); N39.0 Urinary tract infection, site not specified; E11.9 Type 2 diabetes mellitus without complications; E78.00 Pure hypercholesterolemia, unspecified; I10 Essential (primary) hypertension; Z79.899 Other long term (current) drug therapy; Z90.710 Acquired absence of both cervix and uterus
CPT/HCPCS: 99284; 96374; 71045; 87635; 82550; 84484; 80053; 85025; 87040; 87086 ×2; 87186; 87804 ×2; 83605; 81001; 36415; J1100; J7030

== ENCOUNTER 2024-01-04 16:51 | Inpatient (IN) | payer OTHER, MEDICARE ==
[~2024-01-04] VITALS: Ht 162.6 cm; Wt 75.7 kg
[~2024-01-04 16:51] MED LIST changes: +CEPH500B PO; +MOLN200C PO
[2024-01-04 18:02] LABS: BASOPHILS # (AUTO) 0.03 K/uL (0.00-0.20); BASOPHILS % (AUTO) 0.2 % (0.0-5.0); EOSINOPHILS # (AUTO) 0.07 K/uL (0.00-0.70); EOSINOPHILS % (AUTO) 0.4 % (0.0-8.0); HEMATOCRIT 30.4 % (36-48); IMMATURE GRANULOCYTE ABSOLUTE 0.15 K/uL (0-1); LYMPHOCYTES # (AUTO) 1.2 K/uL (1.0-4.8); LYMPHOCYTES % (AUTO) 6.9 % (21.0-51.0); MEAN CORPUSCULAR HEMOGLOBIN 28.1 pg (27.0-33.0); MEAN CORPUSCULAR HGB CONC 32.6 g/dL (32.0-36.0); MEAN CORPUSCULAR VOLUME 86.4 fL (79-99); MONOCYTES # (AUTO) 1.4 K/uL (0.1-1.0); MONOCYTES % (AUTO) 8.1 % (3.0-13.0); NEUTROPHILS % (AUTO) 83.5 % (40.0-77.0); PLATELET COUNT (AUTO) 309 K/uL (130-400); RED BLOOD CELL COUNT(AUTO) 3.52 MIL/uL (4.00-5.50); RED CELL DISTRIBUTION WIDTH 14.6 % (11.0-15.5); WHITE BLOOD COUNT (AUTO) 16.8 K/uL (4.8-10.8)
[2024-01-04 18:20] LABS: CREATININE 1.9 mg/dL (0.5-1.0); POTASSIUM 4.3 mmol/L (3.5-5.1)
[2024-01-04 18:32] LABS: APPEARANCE,URINE TURBID (CLEAR); BILIRUBIN,URINE NEGATIVE (NEGATIVE); COLOR,URINE LIGHT-ORANGE (YELLOW); GLUCOSE, URINE (UA) NEGATIVE (NEGATIVE); KETONES,URINE NEGATIVE (NEGATIVE); LEUKOCYTE ESTERASE ,URINE 500 Leu/uL (NEGATIVE); NITRATE,URINE NEGATIVE (NEGATIVE); OCCULT BLOOD,URINE MODERATE (NEGATIVE); PROTEIN,URINE 70 mg/dL (NEGATIVE); UROBILINOGEN,URINE 0.2 mg/dL (0.2-1.0)
[2024-01-04 18:40] LABS: ADD UA MICROSCOPIC YES
[2024-01-04 18:43] LABS: BACTERIA,URINE RARE /HPF (None Seen); NON-SQUAMOUS EPITHELIAL CELL 1 /HPF (0-2); RBC,URINE 26-50 /HPF (0-1); SQUAMOUS EPITHELIAL CELL,UR FEW /HPF (0-2); WBC CLUMP MANY /HPF (0-1); WBC,URINE TNTC /HPF (0-1); YEAST,URINE BUDDING MANY /HPF (None Seen)
[2024-01-04] MEDS: acetaMINOPHEN 500 MG TABLET ONE (19:48)
[2024-01-04] MEDS: cefTRIAXone 1G VIAL IVPB ONE (19:48)
[2024-01-04] MEDS: ondanSETRON 4MG INJ IVP ONE (19:49)
[2024-01-04] MEDS: 0.9%NACL 1000ML 1,000 ML IV ONE ×2 (19:49→23:30)
[2024-01-04] MEDS: morPHINE 2 MG SYG IVP ONE (19:59)
[2024-01-04 20:48] VITALS: TEMP 101.6
[2024-01-04] MEDS ORDERED: LAbetaLOL 20MG SYG IV PRN (21:00)
[2024-01-04] MEDS ORDERED: ondanSETRON 4MG INJ IVP PRN (21:00)
[2024-01-04] MEDS: cefTRIAXone 1G VIAL IVP SCH (21:00)
[2024-01-04] MEDS ORDERED: acetaMINOPHEN 325 MG TAB PO PRN (21:00)
[2024-01-04] MEDS ORDERED: ALBUTEROL 0.083% 2.5 MG/3 ML INH IH PRN (21:00)
[2024-01-04] MEDS ORDERED: acetaMINOPHEN 650 MG SUPPOSITORY RC PRN (21:00)
[2024-01-04] MEDS ORDERED: HYDROcodone/APAP 5/325 1 TAB TABLET PO PRN (21:00)
[2024-01-04] MEDS ORDERED: hydrALAZine 20MG/ML VIAL IV PRN (21:00)
[2024-01-04] MEDS: AZITHROMYCIN 500MG+NS 250ML 250 ML IVPB SCH (21:41)
[2024-01-04] MEDS: FAMOTIDINE 20MG TAB PO SCH (21:41)
[2024-01-04 22:07] LABS: SARS-CoV-2, RNA, NAAT NEGATIVE SARS CoV-2 (NEGATIVE)
[2024-01-04 22:14] LABS: INFLUENZA TYPE A Negative For Type A (NEGATIVE); INFLUENZA TYPE B Negative For Type B (NEGATIVE)
[2024-01-04] MEDS: INSULIN humuLIN R 100 UNIT/ML 3ML SQ SCH (22:56)
[2024-01-04] MEDS: IpraTROPium/alBUTERol SULFATE 3 ML SOLUTION IH ONE (23:05)
[2024-01-04] MEDS: SODIUM CHLORIDE 3% FOR INHALATION 4 ML/AMP VIAL.NEB IH ONE (23:12)
[2024-01-04] MEDS: IpraTROPium/alBUTERol SULFATE 3 ML SOLUTION IH SCH (23:12)
[2024-01-04 23:16] VITALS: PULSE 93; RESP 16
[2024-01-04 23:17] VITALS: PULSE 93; RESP 16; O2SAT 99
[2024-01-04] MEDS: miDODRine HCL 5 MG TABLET PO SCH (23:24)
[2024-01-04] MEDS: miDODRine HCL 5 MG TABLET ONE (23:25)
[2024-01-04] MEDS ORDERED: ALBUMIN (HUMAN) 5% 500 ML IV ONE (23:30)
[2024-01-04] MEDS: ALBUMIN (HUMAN) 5% 500 ML IV SCH (23:56)
[2024-01-05] VITALS (16 sets, daily range): BP systolic 96–133; BP diastolic 54–73; PULSE 62–135; RESP 16–20; TEMP 98.4–100.3; O2SAT 93–97
[2024-01-05] MEDS: ALBUMIN (HUMAN) 25% 50 ML IV SCH (05:07)
[2024-01-05 06:22] LABS: BASOPHILS # (AUTO) 0.04 K/uL (0.00-0.20); BASOPHILS % (AUTO) 0.3 % (0.0-5.0); EOSINOPHILS # (AUTO) 0.07 K/uL (0.00-0.70); EOSINOPHILS % (AUTO) 0.4 % (0.0-8.0); HEMATOCRIT 27.1 % (36-48); IMMATURE GRANULOCYTE ABSOLUTE 0.12 K/uL (0-1); LYMPHOCYTES # (AUTO) 1.4 K/uL (1.0-4.8); LYMPHOCYTES % (AUTO) 8.9 % (21.0-51.0); MEAN CORPUSCULAR HEMOGLOBIN 28.4 pg (27.0-33.0); MEAN CORPUSCULAR HGB CONC 32.1 g/dL (32.0-36.0); MEAN CORPUSCULAR VOLUME 88.6 fL (79-99); MONOCYTES # (AUTO) 1.6 K/uL (0.1-1.0); MONOCYTES % (AUTO) 9.8 % (3.0-13.0); NEUTROPHILS # (AUTO) 12.6 K/uL (1.8-7.7); NEUTROPHILS % (AUTO) 79.8 % (40.0-77.0); PLATELET COUNT (AUTO) 228 K/uL (130-400); RED BLOOD CELL COUNT(AUTO) 3.06 MIL/uL (4.00-5.50); RED CELL DISTRIBUTION WIDTH 14.8 % (11.0-15.5); WHITE BLOOD COUNT (AUTO) 15.8 K/uL (4.8-10.8)
[2024-01-05 06:36] LABS: CREATININE 1.4 mg/dL (0.5-1.0); MAGNESIUM 1.7 mg/dL (1.80-2.40); PHOSPHORUS 3.4 mg/dL (2.5-4.9); POTASSIUM 4.6 mmol/L (3.5-5.1)
[2024-01-05] MEDS: SODIUM CHLORIDE 3% FOR INHALATION 4 ML/AMP VIAL.NEB IH ONE ×2 (06:40→11:15)
[2024-01-05] MEDS: MAGNESIUM 2GM PREMIX 50ML 50 ML IV PRN (07:00)
[2024-01-05] MEDS: 0.9%NACL 1000ML 1,000 ML IV SCH (08:00)
[2024-01-05] MEDS ORDERED: PoTASSium chloRIDE 20MEQ/100ML 100 ML IV PRN (08:00)
[2024-01-05] MEDS ORDERED: MAGNESIUM 2GM PREMIX 50ML 50 ML IV PRN (08:00)
[2024-01-05] MEDS ORDERED: PoTASSium chl 10% ELIXIR 20MEQ 20 MEQ/15 ML UDCUP PO PRN (08:00)
[2024-01-05] MEDS ORDERED: GLUCAGON 1MG KIT 1 MG ML IM PRN (08:00)
[2024-01-05] MEDS ORDERED: DEXTROSE 50%-WATER 50 ML DISP.SYRIN IV PRN (08:00)
[2024-01-05] MEDS ORDERED: PoTASSium chloRIDE 20MEQ ER 20 MEQ ERTAB PO PRN (08:00)
[2024-01-05] MEDS: ASCORBIC ACID 500 MG TAB PO SCH (09:40)
[2024-01-05] MEDS: ENOXAPARIN SODIUM 40 MG/0.4 ML SYRINGE SQ SCH (09:40)
[2024-01-05] MEDS: polyETHYLene GLYCol 3350 17 GM POWD.PACK PO SCH (09:41)
[2024-01-06] VITALS (13 sets, daily range): BP systolic 113–164; BP diastolic 63–82; PULSE 74–111; RESP 16–22; TEMP 97.9–98.7; O2SAT 92–97
[2024-01-06 05:25] LABS: HEMATOCRIT 26.1 % (36-48); MEAN CORPUSCULAR HEMOGLOBIN 27.6 pg (27.0-33.0); MEAN CORPUSCULAR VOLUME 89.1 fL (79-99); PLATELET COUNT (AUTO) 229 K/uL (130-400); RED BLOOD CELL COUNT(AUTO) 2.93 MIL/uL (4.00-5.50); RED CELL DISTRIBUTION WIDTH 14.7 % (11.0-15.5); WHITE BLOOD COUNT (AUTO) 15.6 K/uL (4.8-10.8)
[2024-01-06 05:42] LABS: CREATININE 1.5 mg/dL (0.5-1.0); MAGNESIUM 2.1 mg/dL (1.80-2.40); POTASSIUM 4.3 mmol/L (3.5-5.1)
[2024-01-06] MEDS: BENZONATATE 100 MG CAPSULE PO SCH (14:34)
[2024-01-06] MEDS ORDERED: COMPOUND IV MISC 1 EACH IVSOLN MISC PRN (15:30)
[2024-01-06] MEDS: MEROPENEM 1 GM in 0.9%NACL 100ML 100 ML IV SCH (16:55)
[2024-01-06] MEDS: doCUSate SODIUM 100 MG CAP PO ONE (21:10)
[2024-01-07] VITALS (12 sets, daily range): BP systolic 113–156; BP diastolic 59–91; PULSE 73–110; RESP 18–21; TEMP 98–100; O2SAT 95–100
[2024-01-07 05:58] LABS: HEMATOCRIT 25.3 % (36-48); MEAN CORPUSCULAR HEMOGLOBIN 27.7 pg (27.0-33.0); MEAN CORPUSCULAR HGB CONC 31.6 g/dL (32.0-36.0); MEAN CORPUSCULAR VOLUME 87.5 fL (79-99); RED BLOOD CELL COUNT(AUTO) 2.89 MIL/uL (4.00-5.50); RED CELL DISTRIBUTION WIDTH 14.8 % (11.0-15.5); WHITE BLOOD COUNT (AUTO) 11.5 K/uL (4.8-10.8)
[2024-01-07] MEDS: LACTULOSE 20 GM/30 ML UDCUP PO PRN (06:06)
[2024-01-07 06:17] LABS: CREATININE 1.3 mg/dL (0.5-1.0); POTASSIUM 4.3 mmol/L (3.5-5.1)
[2024-01-08] VITALS (13 sets, daily range): BP systolic 119–144; BP diastolic 67–82; PULSE 67–124; RESP 19–20; TEMP 97.5–98.6; O2SAT 97–99
[2024-01-08 06:39] LABS: HEMATOCRIT 25.2 % (36-48); MEAN CORPUSCULAR HEMOGLOBIN 27.2 pg (27.0-33.0); MEAN CORPUSCULAR HGB CONC 31.3 g/dL (32.0-36.0); MEAN CORPUSCULAR VOLUME 86.9 fL (79-99); RED BLOOD CELL COUNT(AUTO) 2.9 MIL/uL (4.00-5.50); RED CELL DISTRIBUTION WIDTH 14.6 % (11.0-15.5); WHITE BLOOD COUNT (AUTO) 7.3 K/uL (4.8-10.8)
[2024-01-08 06:56] LABS: ALBUMIN 2.6 g/dL (3.5-5.0); BILIRUBIN,TOTAL 0.5 mg/dL (0.2-1.0); CREATININE 1.3 mg/dL (0.5-1.0); MAGNESIUM 1.8 mg/dL (1.80-2.40); POTASSIUM 3.9 mmol/L (3.5-5.1); TOTAL PROTEIN, SERUM 6.6 g/dL (6.0-8.3)
[2024-01-08 13:02] LABS: INR 1.07 (0.85-1.15); PROTHROMBIN TIME 11.5 SEC (9.6-11.6)
[2024-01-08 13:03] LABS: PARTIAL THROMBOPLASTIN TIME 35.3 SEC (26.3-35.5)
[2024-01-08] MEDS ORDERED: guaiFENesin-coDEINE 5 ML SYRUP PO PRN (16:30)
[2024-01-08] MEDS ORDERED: furoSEMIDE 40MG VIAL IV SCH (16:30)
[2024-01-09] VITALS (8 sets, daily range): BP systolic 101–135; BP diastolic 56–79; PULSE 74–90; RESP 18–20; TEMP 98.1–98.8; O2SAT 96–98
[2024-01-09] MEDS: 0.9%NACL 10ML VIAL IV SCH (08:50)
[2024-01-09] MEDS: FAMOTIDINE 20MG TAB PO SCH (08:50)
[2024-01-09] MEDS ORDERED: furoSEMIDE 40MG VIAL IV SCH (09:00)
[2024-01-09] MEDS ORDERED: miDODRine HCL 5 MG TABLET PO (10:26)
== END 2024-01-09 17:30 | DRG 871 ==
LOC: EDH 16:51 → OBSVTOIN 20:41 → EDHIP 20:41 → 3CH 21:40
PROVIDERS: ADMIT Internal Medicine Critical Care Medicine; ATTEND Internal Medicine Critical Care Medicine
PROC: 05HF33Z Insertion of Infusion Device into Left Cephalic Vein, Percutaneous Approach (ICD-10-PCS; principal; 2024-01-04)
DX: A41.9 Sepsis, unspecified organism (principal); J18.9 Pneumonia, unspecified organism; N30.00 Acute cystitis without hematuria; N17.9 Acute kidney failure, unspecified; I50.32 Chronic diastolic (congestive) heart failure; J98.11 Atelectasis; Z20.822 Contact with and (suspected) exposure to COVID-19; E11.65 Type 2 diabetes mellitus with hyperglycemia; E78.5 Hyperlipidemia, unspecified; B96.20 Unspecified Escherichia coli [E. coli] as the cause of diseases classified elsewhere; I11.0 Hypertensive heart disease with heart failure; D63.8 Anemia in other chronic diseases classified elsewhere; E66.9 Obesity, unspecified; Z68.28 Body mass index [BMI] 28.0-28.9, adult; Z91.148 Patient's other noncompliance with medication regimen for other reason; Z79.84 Long term (current) use of oral hypoglycemic drugs; Z79.899 Other long term (current) drug therapy
CPT/HCPCS: 36415; 71045; 71250; 80048; 80053; 81001; 82948; 83605; 83735; 83880; 84100; 84145; 85025; 85027; 85610; 85730; 87040; 87086; 87186; 87635; 87804; 93005; 94640; 94664; 96361; 96374; 96375; C1894; G0378; J0456; J0696; J1650; J1815; J2185; J2270; J2405; J3475; J7030; P9045; P9047; C1750